=== PATIENT | male | born 1990 | race Hispanic/Latino ===

== ENCOUNTER 2024-01-01 20:06 | Emergency (ER) | payer OTHER ==
[2024-01-01] MEDS: ONDANSETRON ODT 4MG TAB SL ONE (20:58)
[2024-01-01] MEDS: ONDANSETRON 4MG INJ IVP ONE (20:58)
[2024-01-01] MEDS ORDERED: IOHEXOL 350 MG/ML 100ML INFUS..BTL IV ONE (21:07)
[2024-01-01 21:10] LABS: POTASSIUM 3.6 mmol/L (3.5-5.1)
[2024-01-01] MEDS ORDERED: IBUP-1493 PO (22:47)
[2024-01-01] MEDS ORDERED: CYCL-309 PO (22:47)
[2024-01-01 22:59] VITALS: BP 148/88; PULSE 84; RESP 16; O2SAT 99
== END 2024-01-01 23:05 | disposition home or self-care (01) ==
LOC: EDH 20:06
DX: S80.02XA Contusion of left knee, initial encounter (principal); S20.212A Contusion of left front wall of thorax, initial encounter; I10 Essential (primary) hypertension; S30.1XXA Contusion of abdominal wall, initial encounter; V89.2XXA Person injured in unspecified motor-vehicle accident, traffic, initial encounter; Y93.I9 Activity, other involving external motion; Y92.488 Other paved roadways as the place of occurrence of the external cause; Y99.8 Other external cause status
CPT/HCPCS: 99285; 70450; 80048; 36415; 73562; 72125; 71270; 74178; Q9967